=== PATIENT | male | born 2005 | race Caucasian/White ===

== ENCOUNTER → 2025-01-31 13:18 | Outpatient (CLI) | payer OTHER, SELFPAY ==
--- NOTE | 2025-01-31 13:21 | DI.RAD.S_ITS ---
PROCEDURE: XR ANKLE LT MIN 3V INDICATIONS: r/o occult fx TECHNIQUE: 3 views of the ankle were acquired. COMPARISON: None. FINDINGS: Bones: No fractures or dislocations. Ankle mortise is normally aligned. No suspicious bony lesions. Soft tissues: No tibiotalar joint effusion. Achilles tendon appears normal. IMPRESSION: No acute bony abnormality or significant effusion. Dictated by: Vikas Dunbar M.D. on 01/31/2025 at 14:40 Approved by: Vikas Dunbar M.D. on 01/31/2025 at 14:41
== END ==
PROVIDERS: Referring Provider Chiropractor; Visit Provider Chiropractor
DX: S93.402D Sprain of unspecified ligament of left ankle, subsequent encounter (principal); X58.XXXA Exposure to other specified factors, initial encounter
CPT/HCPCS: 73610